=== PATIENT | female | born 1990 | race Two or more races ===

== ENCOUNTER 2017-07-26 18:19 | Emergency (ER) | payer MEDICAID ==
[2017-07-26 18:51] VITALS: BP 128/78; PULSE 81; RESP 18; TEMP 98.4; O2SAT 100
[2017-07-26] MEDS ORDERED: Sodium Chloride 0.9% 1,000 ML IV STA (19:01)
--- NOTE | 2017-07-26 19:18 | ED PDOC ---
HPI: Female Pain Time Seen by Provider: 07/26/17 18:49 Chief Complaint (Nursing): GI Problem Chief Complaint (Provider): UTI History Per: Patient History/Exam Limitations: no limitations Onset/Duration Of Symptoms: Days (x2) Current Symptoms Are (Timing): Still Present Quality Of Discomfort: Burning Additional Complaint(s): 27 y/o female with a history of UTI's presents to the ED for a UTI. Patient associates a burning type of back pain for 2 days along with nausea, vomiting, and diarrhea. She denies any fever, dysuria, or frequency. PMD: None provided Past Medical History Reviewed: Historical Data, Nursing Documentation, Vital Signs Vital Signs: Last Vital Signs Temp 98.4 F 07/26/17 18:50 Pulse 81 07/26/17 18:50 Resp 18 07/26/17 18:50 BP 128/78 07/26/17 18:50 Pulse Ox 100 07/26/17 18:50 - Medical History Other PMH: UTI - Surgical History Surgical History: No Surg Hx - Family History Family History: States: No Known Family Hx - Home Medications Home Medications: Ambulatory Orders Medication Instructions Recorded Sulfamethoxazole/Trimethoprim 1 tab PO BID #20 tab 07/26/17 [Bactrim DS 800 mg-160 mg] - Allergies Allergies/Adverse Reactions: Allergies Allergy/AdvReac Type Severity Reaction Status Date / Time No Known Allergies Allergy Verified 07/26/17 19:01 Review of Systems ROS Statement: Except As Marked, All Systems Reviewed And Found Negative Constitutional: Negative for: Fever Gastrointestinal: Positive for: Nausea, Vomiting, Diarrhea Genitourinary Female: Negative for: Dysuria, Frequency Physical Exam - Reviewed Nursing Documentation Reviewed: Yes Vital Signs Reviewed: Yes - Physical Exam Appears: Positive for: Non-toxic, No Acute Distress Head Exam: Positive for: ATRAUMATIC, NORMOCEPHALIC Skin: Positive for: Normal Color, Warm, Dry Eye Exam: Positive for: EOMI, Normal appearance, PERRL Neck: Positive for: Normal, Painless ROM, Supple Cardiovascular/Chest: Positive for: Regular Rate, Rhythm. Negative for: Murmur Respiratory: Positive for: Normal Breath Sounds. Negative for: Respiratory Distress Gastrointestinal/Abdominal: Positive for: Normal Exam, Soft. Negative for: Tenderness Back: Positive for: Normal Inspection. Negative for: L CVA Tenderness, R CVA Tenderness, Vertebral Tenderness Extremity: Positive for: Normal ROM. Negative for: Tenderness, Pedal Edema, Deformity, Swelling (leg) Neurologic/Psych: Positive for: Alert, Oriented (x3). Negative for: Motor/ Sensory Deficits - Laboratory Results Result Diagrams: 07/26/17 19:58 07/26/17 19:58 - ECG O2 Sat by Pulse Oximetry: 100 (RA) Pulse Ox Interpretation: Normal Medical Decision Making Medical Decision Making: Time: 18:50 Initial Impression: UTI versus pyelonephritis possible gastroenteritis Initial Plan: * CMP * UDip * Test * CBC * IV Fluids * Blood Culture * Urine Culture * Uranalysis Scribe Attestation: Documented by Dwaine Meyers acting as a scribe for Randolph Ngo MD. Scribe Attestation: All medical record entries made by the Scribe were at my direction and personally dictated by me. I have reviewed the chart and agree that the record accurately reflects my personal performance of the history, physical exam, medical decision making, and the department course for this patient. I have also personally directed, reviewed, and agree with the discharge instructions and disposition. Disposition - Clinical Impression Clinical Impression: UTI (urinary tract infection) - Patient ED Disposition Is Patient to be Admitted: No Counseled Patient/Family Regarding: Studies Performed, Diagnosis, Need For Followup, Rx Given - Disposition Referrals: [facility] [Outside] Disposition: Routine/Home Disposition Time: 20:28 Condition: FAIR Prescriptions: Sulfamethoxazole/Trimethoprim [Bactrim DS 800 mg-160 mg] 1 tab PO BID #20 tab Instructions: Urinary Tract Infections in Adults Forms: [facility] ([place]ic)
[2017-07-26 20:06] LABS: BASO % 0.2 % (0.0-2.0); EOS # 0.1 K/uL (0.0-0.7); EOS % 1.2 % (0.0-4.0); HEMOGLOBIN 13.2 g/dL (12.0-16.0); LYMPH # 2.2 K/uL (1.0-4.3); LYMPH % 23.2 % (20.0-40.0); MEAN CELL VOLUME 87.2 fl (81.0-99.0); MEAN CORPUSCULAR HEMOGLOBIN 29.3 pg (27.0-31.0); MEAN CORPUSCULAR HGB CONC 33.6 g/dL (33.0-37.0); MEAN PLATELET VOLUME 8.5 fl (7.2-11.7); MONO # 0.7 K/uL (0.0-0.8); MONO % 6.8 % (0.0-10.0); NEUT # 6.6 K/uL (1.8-7.0); NEUT % 68.6 % (50.0-75.0); NRBC % 0.1 % (0.0-0.0); RBC 4.5 Mil/uL (3.80-5.20); RED CELL DISTRIBUTION WIDTH 13.1 % (11.5-14.5); WHITE BLOOD COUNT 9.6 K/uL (4.8-10.8)
[2017-07-26 20:13] LABS: ALB/GLOB RATIO 1.1 (1.0-2.1); ALBUMIN 4.2 g/dL (3.5-5.0); ALT/SGPT 41 U/L (9-52); AST/SGOT 30 U/L (14-36); BLOOD UREA NITROGEN 14 mg/dl (7-17); CALCIUM 8.7 mg/dL (8.4-10.2); GFR AFRICAN-AMERICAN > 60; GFR NON-AFRICAN AMERICAN > 60
[2017-07-26 20:15] LABS: SQUAMOUS EPITHIAL 34 /hpf (0-5); URINE AMORPHOUS SEDIMENT RARE /ul (<OCC); URINE BACTERIA RARE (<OCC); URINE BILIRUBIN NEGATIVE (NEGATIVE); URINE BLOOD MODERATE (NEGATIVE); URINE CLARITY CLOUDY (Clear); URINE COLOR AMBER (YELLOW); URINE GLUCOSE (UA) NEG (Normal); URINE LEUKOCYTE ESTERASE TRACE Leu/uL (Negative); URINE PROTEIN 100 mg/dL (NEGATIVE)
== END 2017-07-26 21:30 | disposition home or self-care (01) ==
LOC: H.ER 18:19
DX: N39.0 Urinary tract infection, site not specified (principal)
CPT/HCPCS: 80053; 81003; 81025; 85025; 87040; 87086; 99283; J7040

== ENCOUNTER 2017-09-23 09:20 | Emergency (ER) | payer MEDICAID ==
[2017-09-23 09:24] VITALS: BMI 38.2
[2017-09-23 09:26] VITALS: TEMP 98.9; O2SAT 95
--- NOTE | 2017-09-23 10:10 | ED PDOC ---
HPI: CCC, URI, Sore Throat Time Seen by Provider: 09/23/17 09:33 Chief Complaint (Nursing): Eye Problem Chief Complaint (Provider): Sinus Congestion History Per: Patient History/Exam Limitations: no limitations Have you had recent travel within the past 21 days to any of the following countries: [place], [place], [place] or [place]?: No Onset/Duration Of Symptoms: Days (x4 days) Current Symptoms Are (Timing): Still Present Location Of Pain: Sinus/es, Headache Associated Symptoms: Sore Throat, Cough, Neck Pain, Sinus Drainage, Nasal Congestion. denies: Fever, Nausea Additional Complaint(s): 27 y/o female with a history of allergies presents to the ED for sinus congestion. Patient states it began 4 days ago when she noticed symptoms such as sore throat, pressure to the front of the head and nose, pain to the back of the neck, coughing, and bilateral conjunctivae injection with thick discharge. She states she was supposed to see her PMD today but couldn't wait because she has to go to work today. Denies any vomiting, fever, SOB, trouble urinating, or back pain. PMD: [facility] Past Medical History Reviewed: Historical Data, Nursing Documentation, Vital Signs Vital Signs: Last Vital Signs Temp 98.9 F 09/23/17 10:10 Pulse 99 H 09/23/17 10:10 Resp 17 09/23/17 10:10 BP 130/68 09/23/17 10:10 Pulse Ox 95 09/23/17 10:23 - Medical History PMH: No Chronic Diseases - Surgical History Surgical History: No Surg Hx - Family History Family History: States: No Known Family Hx - Social History Current smoker - smoking cessation education provided: No Ex-Smoker (has not smoked in the last 12 months): No Alcohol: None Drugs: Denies - Home Medications Home Medications: Ambulatory Orders Medication Instructions Recorded Sulfamethoxazole/Trimethoprim 1 tab PO BID #20 tab 07/26/17 [Bactrim DS 800 mg-160 mg] Amoxicillin 875 mg PO BID #20 tablet 09/23/17 Fluticasone Propionate [Flonase] 2 spr IN BID #1 bottle 09/23/17 Gentamicin Sulfate [Garamycin 0.3% 1 drop OU Q3H #1 bottle 09/23/17 Opth] Guaifenesin/Pseudoephedrne HCl 1 ter PO Q12H PRN #10 ter 09/23/17 [Mucinex D 600 mg-60 mg] - Allergies Allergies/Adverse Reactions: Allergies Allergy/AdvReac Type Severity Reaction Status Date / Time iodine Allergy RASH Verified 09/23/17 09:39 Review of Systems ROS Statement: Except As Marked, All Systems Reviewed And Found Negative Constitutional: Negative for: Fever Eyes: Positive for: Redness, Other (bilateral discharge to eyes) ENT: Positive for: Nose Pain (pressure), Nose Congestion Respiratory: Positive for: Cough. Negative for: Shortness of Breath Gastrointestinal: Negative for: Vomiting Genitourinary Female: Negative for: Other (urinary problems) Musculoskeletal: Negative for: Back Pain Neurological: Positive for: Headache Physical Exam - Reviewed Nursing Documentation Reviewed: Yes Vital Signs Reviewed: Yes - Physical Exam Appears: Positive for: Non-toxic, No Acute Distress Head Exam: Positive for: ATRAUMATIC, NORMOCEPHALIC Skin: Positive for: Normal Color, Warm Eye Exam: Positive for: EOMI, PERRL, Conjunctival injection (bilateral) ENT: Positive for: Pharyngeal Erythema (mild), Other (tenderness more prominent in the maxillary sinuses, uvula is midline). Negative for: Tonsillar Exudate Neck: Positive for: Normal, Painless ROM, Supple Cardiovascular/Chest: Positive for: Regular Rate, Rhythm. Negative for: Murmur Respiratory: Positive for: Normal Breath Sounds. Negative for: Respiratory Distress Gastrointestinal/Abdominal: Positive for: Normal Exam, Soft. Negative for: Tenderness Back: Positive for: Normal Inspection. Negative for: L CVA Tenderness, R CVA Tenderness Lymphatic: Positive for: Other (mild tenderness to mandibular area, no rigidity) Neurologic/Psych: Positive for: Alert, Oriented (x3) - ECG O2 Sat by Pulse Oximetry: 95 (RA) Pulse Ox Interpretation: Normal Medical Decision Making Medical Decision Making: Time: 09:24 Impression: URI early sinusitis and conjunctivitis Patient will be discharged home with Amoxicillin, Mucinex D, Flonase nasal spray , and injective mysoun. Scribe Attestation: Documented by Dwaine Meyers acting as a scribe for Kamla Pate MD. Scribe Attestation: All medical record entries made by the Scribe were at my direction and personally dictated by me. I have reviewed the chart and agree that the record accurately reflects my personal performance of the history, physical exam, medical decision making, and the department course for this patient. I have also personally directed, reviewed, and agree with the discharge instructions and disposition. Disposition - Clinical Impression Clinical Impression: Sinusitis, Conjunctivitis - Patient ED Disposition Is Patient to be Admitted: No Doctor Will See Patient In The: Office Counseled Patient/Family Regarding: Diagnosis, Need For Followup, Rx Given - Disposition Referrals: [facility] [Provider Group] [facility] [Outside] Disposition: Routine/Home Disposition Time: 10:00 Condition: STABLE Prescriptions: Amoxicillin 875 mg PO BID #20 tablet Fluticasone Propionate [Flonase] 2 spr IN BID #1 bottle Gentamicin Sulfate [Garamycin 0.3% Opth] 1 drop OU Q3H #1 bottle Guaifenesin/Pseudoephedrne HCl [Mucinex D 600 mg-60 mg] 1 ter PO Q12H PRN #10 ter PRN Reason: cough/congestion Instructions: Sinusitis in Adults, Conjunctivitis ([place]) Forms: [facility] ED School/Work Excuse - POA Present On Arrival: None
[2017-09-23 10:11] VITALS: BP 130/68; PULSE 99; RESP 17
== END 2017-09-23 10:10 | disposition home or self-care (01) ==
LOC: H.ER 09:20
DX: H10.9 Unspecified conjunctivitis (principal); J32.9 Chronic sinusitis, unspecified; Z87.891 Personal history of nicotine dependence

== ENCOUNTER 2017-09-29 21:21 | Emergency (ER) | payer MEDICAID ==
[2017-09-29 21:22] VITALS: BMI 38.2
[2017-09-29 21:38] VITALS: BP 150/89; PULSE 89; RESP 18; TEMP 98.4; O2SAT 98
--- NOTE | 2017-09-29 22:31 | ED PDOC ---
Upper Extremity Pain/Injury Time Seen by Provider: 09/29/17 21:38 Chief Complaint (Nursing): Upper Extremity Problem/Injury History Per: Patient Additional Complaint(s): Pt. states for the past 2 days she's had R wrist pain radiating to her mid- forearm then today she developed same symptom on L wrist. Reports pain is worse with movement. Pt. is R hand dominant. Denies rash, fever, numbness, tingling, weakness. Past Medical History Reviewed: Historical Data, Nursing Documentation, Vital Signs Vital Signs: Last Vital Signs Temp 98.4 F 09/29/17 21:35 Pulse 89 09/29/17 21:35 Resp 18 09/29/17 21:35 BP 150/89 09/29/17 21:35 Pulse Ox 98 09/29/17 21:35 - Family History Family History: States: No Known Family Hx - Home Medications Home Medications: Ambulatory Orders Medication Instructions Recorded Sulfamethoxazole/Trimethoprim 1 tab PO BID #20 tab 07/26/17 [Bactrim DS 800 mg-160 mg] Amoxicillin 875 mg PO BID #20 tablet 09/23/17 Fluticasone Propionate [Flonase] 2 spr IN BID #1 bottle 09/23/17 Gentamicin Sulfate [Garamycin 0.3% 1 drop OU Q3H #1 bottle 09/23/17 Opth] Guaifenesin/Pseudoephedrne HCl 1 ter PO Q12H PRN #10 ter 09/23/17 [Mucinex D 600 mg-60 mg] Meloxicam [Mobic] 1 - 2 tab PO DAILY PRN #10 tab 09/29/17 - Allergies Allergies/Adverse Reactions: Allergies Allergy/AdvReac Type Severity Reaction Status Date / Time iodine Allergy RASH Verified 09/23/17 09:39 Review of Systems ROS Statement: Except As Marked, All Systems Reviewed And Found Negative Physical Exam - Physical Exam Appears: Positive for: Well Skin: Positive for: Normal Color, Warm. Negative for: Rash Pulses-Radial (L): 2+ Pulses-Radial (R): 2+ Extremity: Positive for: Other (B/L wrist: no tenderness, swelling, deformity, warmth, erythema, break in skin integrity. ) - ECG O2 Sat by Pulse Oximetry: 98 - Radiology X-Ray: Interpreted by Me (B/L wrist x-rays) X-Ray Interpretation: No Acute Disease - Progress ED Course And Treament: B/L wrist x-rays, toradol 30mg IM, lyme disease screen ordered. [id number] Advised to f/u with Dr. Craig, hand surgeon [employer], for further evaluation. Disposition - Clinical Impression Clinical Impression: Bilateral wrist pain - Patient ED Disposition Is Patient to be Admitted: No - Disposition Referrals: Kathleen Craig MD [Staff Provider] - [facility]] Disposition: Routine/Home Disposition Time: 22:56 Condition: STABLE Additional Instructions: Follow up with Dr. Craig, hand specialist, for further evaluation. Return to ED immediately if symptoms worsen. Prescriptions: Meloxicam [Mobic] 1 - 2 tab PO DAILY PRN #10 tab PRN Reason: Pain Instructions: Joint Pain Forms: [employer] (British), [facility] ED School/Work Excuse Print Language: ROMANSH
--- NOTE | 2017-09-30 09:09 | RAD ---
PROCEDURE: Bilateral Wrists Radiographs. HISTORY: pain COMPARISON: None. FINDINGS: BONES: Right Carpal Bones: Normal. No fracture or degenerative changes. Left Carpal Bones: Normal. No fracture or degenerative changes. Right Distal Radius and Ulna: No fracture or degenerative changes. Left Distal Radius and Ulna: No fracture or degenerative changes. JOINT SPACES: Right Wrist: Normal. No degenerative changes. Left Wrist: Normal. No degenerative changes. SOFT TISSUES: Right Wrist: Normal. Left Wrist: Normal. OTHER FINDINGS: None. IMPRESSION: Normal radiographs of the wrists.
[2017-10-02 09:50] LABS: 23 KD (IGG) BAND Nonreactive
== END 2017-09-30 00:22 | disposition home or self-care (01) ==
LOC: H.ER 21:21
DX: M25.539 Pain in unspecified wrist (principal)
CPT/HCPCS: 29125; 73110; 81025; 86617; 96372; 99282; J1885